=== PATIENT | female | born 1940 | race Caucasian/White ===

== ENCOUNTER → 2019-03-24 05:31 | Day surgery (SDC) | payer MEDICARE ==
--- NOTE | 2019-03-11 06:39 | HP ---
CC: Dr. Nish Alvarez * HISTORY AND PHYSICAL: DATE OF PLANNED ADMISSION AND SURGERY: 03/24/19 HISTORY OF PRESENT ILLNESS: Mrs. Saucedo is a 78-year-old white female who is admitted with left renal calculi for shock wave lithotripsy. Mrs. Saucedo presented to the emergency room at [facility] on 12/12/18 with symptoms of left renal colic. She did not have any fever or chills. She had a non-contrast CT of the abdomen and pelvis which showed a 7 mm obstructing calculus at the left ureteropelvic junction and another 7 mm calculus in the lower pole ginny of the left kidney. The patient was managed conservatively with pain medication and her pain resolved. She was then followed by Dr. Alvarez, her primary care physician, who obtained a renal ultrasound as a followup. The ultrasound showed resolution of the hydronephrosis with both renal calculi located in the collecting system. The patient has been asymptomatic since that episode. I saw her in my office on 03/07/19 for her initial consultation. She was totally asymptomatic having no flank or abdominal pain. A KUB was obtained which showed 2 radiopaque calculi in the left kidney measuring 7 to 8 mm each. One calculus was located in a lower pole infundibulum and the other calculus in the lower pole ginny. Renal ultrasound was done to check on recurrence of the hydronephrosis. It showed the 2 renal calculi and showed no hydronephrosis. No calculi were seen on the right side. Past history is otherwise negative. No past history of any renal diseases or calculi. No history of urinary tract infections or voiding problems. 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 PAST MEDICAL HISTORY AND SYSTEM REVIEW: 1. She is diabetic, maintained on metformin 500 mg in the morning and 1000 mg in the evening. 2. She has history of thyroid surgery, and she is maintained on Synthroid 100 mcg daily. 3. She is hypertensive, maintained on irbesartan/HCTZ 150/12.5 mg daily. 4. She takes ibuprofen as needed for back pain. 5. She takes supplements and vitamins. 6. She is on aspirin 81 mg daily. ALLERGIES: She denies any allergies to medications. FAMILY HISTORY: Positive for colon carcinoma. PERSONAL HISTORY: She is a . She is a nonsmoker. She drinks alcohol socially. She denies any use of recreational drugs. Her mental health history is negative. PHYSICAL EXAMINATION GENERAL: She is a pleasant and healthy-looking white female who looks good for her age. VITAL SIGNS: Blood pressure 110/60, pulse of 80. LUNGS: Clear. HEART: Regular and rhythmic. No murmurs. ABDOMEN: Soft. No masses or tenderness. No CVA tenderness. IMPRESSION: Two left renal calculi measuring 7 to 8 mm each with past history of left renal colic. Diabetes mellitus; hypertension; hypothyroidism, on treatment. PLAN: Plan is for shock wave lithotripsy of left renal calculi. I discussed the procedure in detail with the patient. Some of the potential complications including postop renal colic, gross hematuria were discussed. All her questions were answered. [id number]/CPS #: [id number] CALVIN
[~2019-03-24 05:31] MED LIST: Buffered Lidocaine 1% SYRIN* 1 ML/SYRINGE INTRADERM ONE; DiMENhydriNATE IV* 50 MG/ML VIAL IV PUSH ONE; DiMENhydriNATE IV* 50 MG/ML VIAL ONE; EPHEDrine (Pressors)* 50 MG/ML VIAL ONE; Famotidine IV* 10 MG/ML 2 ML (20 mg) IV ONE; Famotidine IV* 10 MG/ML 2 ML (20 mg) ONE; Furosemide IV* 10 MG/ML 2 ML VIAL (20 MG) ONE; HYDROcodone/ACETAMIN 5-325 MG* 1 TAB PO PRN; Iohexol 180 (CONTRAST) 10 ML SDV IV ONE; Lactated Ringers 1000 ML Bag* 1,000 ML IV SCH; Lidocaine 2% PF * 5 ML VIAL ONE; Midazolam* 1 MG/ML 2 ML VIAL (2 MG) ONE; Naloxone* 0.4 MG/ML 1 ML VIAL IV PRN; Ondansetron INJ* 2 MG/ML VIAL ONE; PROCHLORPERAZINE INJ 5 MG/ML 2 ML VIAL IV PRN; Phenylephrine 40 MCG/ML SYRINGE ONE; Propofol* 10 MG/ML 20 ML BTL ONE; cefTRIAXone(*) 2 GM ADDV.VIAL IVPB ONE; fentaNYL* 50 MCG/ML 2 ML VIAL (100 MCG VIAL) IV PRN; fentaNYL* 50 MCG/ML 2 ML VIAL (100 MCG VIAL) ONE; oxyCODONE/Acetamin 5/325 MG* TAB PO PRN
[2019-03-24 10:18] VITALS: BP 152/82
--- NOTE | 2019-03-24 10:42 | OP ---
CC: Dr. Nish Alvarez* OPERATIVE REPORT: DATE OF OPERATION: 03/24/19 - [facility] DATE OF : 44 SURGEON: Jerald Sosa MD ANESTHESIOLOGIST: Dr. Naren Kahn. ANESTHESIA: General. PRE-OP DIAGNOSIS: Left renal calculi. POST-OP DIAGNOSIS: Left renal calculi. OPERATIVE PROCEDURES: 1. Cystoscopy. 2. Left retrograde pyelography and insertion of left ureteral stent (6-Bahamian). 3. Shock wave lithotripsy of left renal calculus (ureteropelvic junction level , 8 mm). INDICATION FOR PROCEDURE: Mrs. Saucedo is a 78-year-old white female who had an episode of left renal colic secondary to a 7 to 8 mm calculus at the left ureteropelvic junction. Follow-up imaging showed 2 calculi 8 mm each, one located in the lower pole calyx and another one had migrated into the lower pole infundibulum. With that history, the patient is brought in for shock wave lithotripsy. PATHOLOGY: At preoperative KUB and fluoroscopy, 1 of the 2 calculi moved back to the level of the ureteropelvic junction. The other calculus was still in the lower pole calyx. At cystoscopy, the bladder wall looked normal. No suspicious bladder lesions seen. The ureteral orifices looked normal. No calculi or bladder diverticulae seen. Left retrograde pyelography showed minimal degree of hydronephrosis. DESCRIPTION OF PROCEDURE: After successful general anesthesia, the patient was placed in the lithotomy position and was prepped and draped for cystoscopy. Cystoscopy was performed. The bladder was inspected and no pathology was noted in the bladder wall. The left ureteral orifice was identified and a flexible tip guidewire was introduced into the left orifice and positioned under fluoroscopy guidance into the proximal ureter. Initially there was a hold up of the wire at the level of the stone at the UPJ. An open-ended catheter was then fed on top of the guidewire. Retrograde pyelography was performed demonstrating the pathology and the location of the 2 calculi, one at the ureteropelvic junction and the other one in the lower pole calyx. A size 6-Bahamian stent was then placed with the proximal end coiling in the renal pelvis and the distal end coiling inside the bladder. An 18-Bahamian Hamilton catheter was then placed. The patient was then placed in the supine position on the shock wave lithotripsy table. Fluoroscopy of the left kidney showed the stent in good position in the renal pelvis and a calculus just adjacent to the stent in the renal pelvis. The other calculus was still in the lower pole calyx. Attention was directed to the calculus in the renal pelvis. The position of the patient and of the generator were adjusted to have the calculus in the renal pelvis in the focus of the shock waves. A total of 2,400 shocks were then delivered at a rate of 60 shocks per minute. Two minutes break were taken after the initial 300 shocks. The proper positioning and fragmentation of the stone were monitored periodically. The stone seemed to be rather dense and it took all the 2,400 shocks to fragment it. The calculus in the lower pole calyx could not be treated. At the completion of the procedure, there seemed to be good fragmentation of the renal pelvic stone. The patient tolerated the procedure well and left the operating room in good condition. The plan is to see the patient in the office next week with a KUB. Decision will be made regarding the stent removal and the treatment of the calculus in the lower pole calyx. [id number]/CPS #: [id number] MTDD
== END | disposition home or self-care (01) ==
LOC: OR 05:31
PROVIDERS: ATTEND Urology
DX: N20.0 Calculus of kidney (principal); E11.9 Type 2 diabetes mellitus without complications; Z79.84 Long term (current) use of oral hypoglycemic drugs; E03.9 Hypothyroidism, unspecified; I10 Essential (primary) hypertension; Z79.82 Long term (current) use of aspirin; F41.9 Anxiety disorder, unspecified
CPT/HCPCS: 74018; J0696; J1240; J1940; J2250; J2405; J2704; J3010